=== PATIENT | female | born 1960 | race Caucasian/White ===

== ENCOUNTER 2021-05-11 07:32 | Outpatient (CLI) | payer BC, SELFPAY ==
--- NOTE | ~2021-05-11 | NM_ITS ---
EXAMINATION: NM hepatobiliary wo pharm EXAM DATE: 05/11/2021 12:53 INDICATION: K82.8 - Other specified diseases of gallbladder. TECHNIQUE: 5 mCi Tc-99m mebrofenin (Choletec) was administered intravenously. Scintigraphic images o f the abdomen were obtained for one hour. To obtained gallbladder ejection fraction, patient drank 8 ounces of Ensure and imaging of the gallbladder obtained for one hour following ingestion. Gallblad zoey ejection fraction was calculated by the technologist. There is no prior study for comparison. FINDINGS: There is normal clearance of radiotracer from the blood pool. There is homogeneous tracer u ptake by the liver. Activity progresses to the gallbladder and bowel. The gallbladder ejection fract ion (GBEF) is 55% (most patients with gallbladder dysfunction have GBEF < 35%, but there is slight ov erlap with the normal range of 33-90% using this protocol).] IMPRESSION: Gallbladder ejection fraction 55%, within normal range. Reviewed, dictated and finalized at location A.
== END 2021-05-11 07:33 | disposition home or self-care (01) ==
PROVIDERS: Visit Provider Surgery
DX: K82.8 Other specified diseases of gallbladder (principal)
CPT/HCPCS: 78226; A9537

== ENCOUNTER 2021-07-19 09:45 | Outpatient (CLI) | payer BC, SELFPAY ==
[2021-07-19 10:28] LABS: Basophils Percent Auto 0.5 % (0.2-1.2); Eosinophils Absolute Auto 0.1 K/mm3 (0-0.3); Eosinophils Percent Auto 1.1 % (0-4.4); Hemoglobin 12.6 g/dL (12.0-15.0); Immature Granulocyte Absolute 0.02 K/mm3 (0.00-0.031); Immature Granulocyte Percent A 0.4 % (0-0.5); Lymphocytes Absolute Auto 1.38 K/mm3 (0.9-3.2); Lymphocytes Percent Auto 24.3 % (18.3-44.2); Mean Corpuscular HGB Conc 32.3 g/dl (32-36); Mean Corpuscular Hemoglobin 29.8 pg (26-34); Mean Corpuscular Volume 92.2 fl (80-100); Mean Platelet Volume 11.2 fl (7.4-10.4); Monocytes Absolute Auto 0.5 K/mm3 (0.1-0.6); Monocytes Percent Auto 8.1 % (2.6-8.5); Neutrophils Absolute Auto 3.7 K/mm3 (1.3-6.7); Neutrophils Percent Auto 65.6 % (45.5-73.1); Platelet Count Result 216 k/mm3 (150-375); Red Blood Count 4.23 M/mm3 (4.2-5.4); Red Cell Distribution Width 12.3 % (11.5-14.5); White Blood Count 5.7 K/mm3 (4.5-10.0)
[2021-07-19 10:39] LABS: Alanine Aminotransferase 14 U/L (4-35); Albumin Level 4.4 g/dL (3.5-5.1); Alkaline Phosphatase 69 U/L (38-126); Anion Gap 7 mmol/L (8-16); Aspartate Amino Transferase 17 U/L (14-36); Bilirubin,Total 0.6 mg/dL (0.2-1.3); Blood Urea Nitrogen 15 mg/dL (7-17); Calcium 9.1 mg/dL (8.4-10.2); Carbon Dioxide 28 mmol/L (22-30); Chloride 101 mmol/L (98-107); Estimated Glomerular Filt Rate > 60; Glucose 179 mg/dL (65-110); Lipase 24 U/L (23-300); Potassium 3.7 mmol/L (3.4-5.0); Sodium 136 mmol/L (137-145)
== END 2021-07-19 09:46 | disposition home or self-care (01) ==
LOC: ANHLAB 09:48
PROVIDERS: Visit Provider Surgery
DX: R10.10 Upper abdominal pain, unspecified (principal)
CPT/HCPCS: 36415; 80053; 83690; 85025

== ENCOUNTER 2021-07-27 15:34 | Outpatient (CLI) | payer BC, SELFPAY ==
--- NOTE | ~2021-07-27 | CT_ITS ---
EXAMINATION: CT abdomen pelvis w con DATE: 07/27/2021 16:05 INDICATION: Upper abdominal pain TECHNIQUE: Computed tomography (CT) of the abdomen and pelvis was performed with 100 cc Omnipaque 350 intravenous contrast. The dose-length product was 238.03 mGy-cm. Automated exposure control and iter ative reconstruction technique were employed. COMPARISON: None. FINDINGS: Lung bases are unremarkable. Heart size is normal. No significant pleural or pericardial ef fusion. Mild atherosclerosis of the aorta without aneurysm. No lymphadenopathy. The liver, spleen, pancreas, adrenal glands and left kidney are unremarkable. There is a subcentimete r hypodensity lower pole of the right kidney, most likely benign. Gallbladder is mildly distended. No definitive gallstones. Nonobstructive bowel gas pattern. Normal appendix. There is mild osteoarthrit is of the hips. Mild lumbar spondylosis. No acute osseous abnormality. Small hiatal hernia. No free a ir or free fluid. IMPRESSION: 1. No acute abdominal abnormality. Reviewed, dictated and finalized at location A. [employer] ANCHOR
== END 2021-07-27 15:35 | disposition home or self-care (01) ==
LOC: ANHIMG 15:38
PROVIDERS: PCP Emergency Medicine; Visit Provider Surgery
DX: R10.10 Upper abdominal pain, unspecified (principal)
CPT/HCPCS: 74177; Q9967

== ENCOUNTER 2021-08-10 09:28 | Outpatient (CLI) | payer BC, SELFPAY ==
--- NOTE | ~2021-08-10 | XR_ITS ---
EXAMINATION: XR thoracic spine 3V EXAM DATE: 08/10/2021 09:56 INDICATION: M54.50 - Low back pain, unspecified . TECHNIQUE: Frontal and lateral projections of the thoracic spine as well as lateral swimmers projecti on of the upper thoracic spine for interpretation. There is no prior study for comparison. FINDINGS: Mild thoracic spondylosis. The vertebral body heights are maintained. The vertebral bodies are aligned in the AP dimension. Paraspinal soft tissue is unremarkable. IMPRESSION: Mild thoracic spondylosis. Reviewed, dictated and finalized at location A. [employer] HE[employer] ENGINEER IMPRESSION: Mild thoracic spondylosis.
--- NOTE | ~2021-08-10 | XR_ITS ---
EXAMINATION: XR lumbar spine min 4V EXAM DATE: 08/10/2021 09:56 INDICATION: M54.50 - Low back pain, unspecified. TECHNIQUE: Lumber spine frontal, lateral, bilateral oblique projections. Coned down frontal and lat eral L5-S1 lumbar projections for interpretation. There is no prior study for comparison. FINDINGS: There is no spondylolysis. The vertebral bodies are aligned in the AP dimension. Moderate d isc disease L5-S1. The vertebral body and disc heights are otherwise well maintained. Moderate mid an d lower lumbar facet arthropathy. Sacrum, sacroiliac joints, sacral arcuate lines are intact. There a re no acute fractures identified. IMPRESSION: 1. Moderate lumbar facet arthropathy and L5-S1 disc disease. 2. No acute findings. Reviewed, dictated and finalized at location A. [employer] OUTREACH MANAGER
== END 2021-08-10 09:29 | disposition home or self-care (01) ==
LOC: ANHIMG 09:30
PROVIDERS: PCP Emergency Medicine; Visit Provider Surgery
DX: M51.37 Other intervertebral disc degeneration, lumbosacral region (principal); M47.894 Other spondylosis, thoracic region
CPT/HCPCS: 72072; 72110